=== PATIENT | male | born 1970 | race Two or more races ===

== ENCOUNTER 2017-09-06 10:20 | Inpatient (IN) | payer OTHER ==
[~2017-09-06] VITALS: Ht 182.9 cm; Wt 113.4 kg
[2017-09-06] MEDS ORDERED: ASA81 MG PO (11:16)
[2017-09-06] MEDS ORDERED: PLAVIX75 MG PO (11:16)
[2017-09-06] MEDS ORDERED: TOPROL XL50 M1 PO (11:16)
[2017-09-06] MEDS ORDERED: LIPITOR20 MG PO (11:16)
[2017-09-14] MEDS ORDERED: GABAPENTIN800 MG PO (09:04)
[2017-09-14] MEDS ORDERED: DOCUSATE SODIU100 MG PO (09:04)
[2017-09-14] MEDS ORDERED: AMOX-CLAV 875-1 EACH PO (09:05)
[2017-09-14] MEDS ORDERED: CLONAZEPAM1 MG PO (09:06)
[2017-09-14] MEDS ORDERED: PERCOCET 5-3251 EACH PO (09:06)
[2017-09-14] MEDS ORDERED: MEDROLPACK PO (14:17)
== END 2017-09-14 15:59 | DRG 460 ==
LOC: O/R 09-13 05:00 → SURG 09-13 09:30 → PED 09-13 16:59
PROVIDERS: Orthopaedic Surgery Orthopaedic Surgery of the Spine
PROC: 00NY0ZZ Release Lumbar Spinal Cord, Open Approach (ICD-10-PCS; 2017-09-13)
PROC: 0ST40ZZ Resection of Lumbosacral Disc, Open Approach (ICD-10-PCS; 2017-09-13)
PROC: 07DS3ZZ Extraction of Vertebral Bone Marrow, Percutaneous Approach (ICD-10-PCS; 2017-09-13)
PROC: 0SG30AJ Fusion of Lumbosacral Joint with Interbody Fusion Device, Posterior Approach, Anterior Column, Open Approach (ICD-10-PCS; principal; 2017-09-13 09:30)
DX: M96.1 Postlaminectomy syndrome, not elsewhere classified (principal); M51.17 Intervertebral disc disorders with radiculopathy, lumbosacral region; M47.27 Other spondylosis with radiculopathy, lumbosacral region; I10 Essential (primary) hypertension

== ENCOUNTER 2020-07-26 06:13 | Day surgery (SDC) | payer OTHER ==
[~2020-07-26 06:13] MED LIST: AMOX-CLAV 875-1 EACH PO; ASA81 MG PO; CLONAZEPAM1 MG PO; DOCUSATE SODIU100 MG PO; GABAPENTIN800 MG PO; LIPITOR20 MG PO; MEDROLPACK PO; PERCOCET 5-3251 EACH PO; PLAVIX75 MG PO; TOPROL XL50 M1 PO
== END 2020-07-26 10:35 | disposition home or self-care (01) ==
LOC: CIR.AMB 06:13
PROVIDERS: ATTEND Colon & Rectal Surgery
DX: D12.4 Benign neoplasm of descending colon (principal); D12.5 Benign neoplasm of sigmoid colon; K64.1 Second degree hemorrhoids; Z20.822 Contact with and (suspected) exposure to COVID-19